=== PATIENT | male | born 1975 | race Two or more races ===

== ENCOUNTER 2024-12-24 10:28 | Emergency (ER) | payer OTHER ==
[~2024-12-24] VITALS: Ht 167.6 cm; Wt 91.1 kg
--- NOTE | 2024-12-24 10:51 | ED.PDOC ---
HPI (NEURO) HPI Comments 49 year old male presents to the ED with chief complaint of left sided facial numbness and weakness. Patient reports that he woke up this morning with left sided facial numbness and weakness, not able to close his eye all the way and cannot smile evenly. Patient relays that he has history of HLD and DM, taking Glipizide, Atorvastatin, and Metformin. Patient denies any extremity weakness, numbness, headache, chest pain, SOB, or dizziness. Chief Complaint: Left Sided Weakness Time Seen by MD: 10:47 Reviewed Notes: Nurses Notes, Medications, Allergies Information Source: Patient Mode of Arrival: Ambulatory Severity: Moderate Dizziness/Weakness Severity: Does not affect activitie Headache Severity: None Timing: Hours Duration: Since onset Prehospital treatment: None Weakness Location: Facial Numbness Location: Facial Onset: At rest Circumstances: Spontaneous Symptoms: Weakness, Numbness Before: Normal After: Normal Mentation History of: DM Modifying factors: Nothing Associated Signs and Symptoms: Weakness, Numbness Past Medical History PAST MEDICAL HISTORY: DM, High Lipids Surgical History: Denies all surgeries Family History Family History: Reviewed,noncontributory to illness Social History Smoker: Cigarettes Alcohol: Occasionally Drugs: Denies Drug Use Lives In: Home Constitutional: denies: chills, diaphoresis, fatigue, fever, malaise, sweats, weakness, others EENTM: denies: blurred vision, double vision, ear bleeding, ear discharge, ear drainage, ear pain, ear ringing, eye pain, eye redness, hearing loss, mouth pain, mouth swelling, nasal discharge, nose bleeding, nose congestion, nose pain, photophobia, tearing, throat pain, throat swelling, voice changes, others Respiratory: denies: cough, hemoptysis, orthopnea, SOB at rest, shortness of breath, SOB with excertion, stridor, wheezing, others Cardiovascular: denies: chest pain, dizzy spells, diaphoresis, Dyspnea on exertion, edema, irregular heart beat, left arm pain, lightheadedness, palpitations, PND, syncope, others Gastrointestinal: denies: abdomen distended, abdominal pain, blood streaked bowels, constipated, diarrhea, dysphagia, difficulty swallowing, hematemesis, melena, nausea, poor appetite, poor fluid intake, rectal bleeding, rectal pain, vomiting, others Genitourinary: denies: burning, dysuria, flank pain, frequency, hematuria, incontinence, penile discharge, penile sore, pain, testicle pain, testicle swelling, urgency, others Neurological: reports: others (Left sided facial numbness and weakness); denies: dizziness, fainting, headache, left sided numbness, left sided weakness, numbness, paresthesia, pre-existing deficit, right sided numbness, right sided weakness, seizure, speech problems, tingling, tremors, weakness Musculoskeletal: denies: back pain, gout, joint pain, joint swelling, muscle pain, muscle stiffness, neck pain, others Integumetry: denies: bruises, change in color, change in hair/nails, dryness, laceration, lesions, lumps, rash, wounds, others Allergic/Immunocompromised: denies: Difficulty Healing, Frequent Infections, Hives, Itching, others Hematologic/Lymphatic: denies: anemia, blood clots, easy bleeding, easy bruising, swollen glands, others Endocrine: denies: excessive hunger, excessive sweating, excessive thirst, excessive urination, flushing, intolerance to cold, intolerance to heat, unexplained weight gain, unexplained weight loss, others Psychiatric: denies: anxiety, bipolar disorder, depression, hopeless, panic disorder, schizophrenia, sleepless, suicidal, others All Other Systems: Reviewed and Negative Physical Exam General Appearance: No Apparent Distress HEENT: Normal ENT Inspection, Pharynx Normal, TMs Normal Neck: Full Range of Motion, Non-Tender, Normal, Normal Inspection Respiratory: Chest Non-Tender, Lungs Clear, No Accessory Muscle Use, No Respiratory Distress, Normal Breath Sounds Cardiovascular: No Edema, No JVD, No Murmur, No Gallop, Normal Peripheral Pulses, Regular Rate/Rhythm Breast Exam: Deferred Gastrointestinal: No Organomegaly, Non Tender, No Pulsatile Mass, Normal Bowel Sounds, Soft Genitalia: Deferred Pelvic: Deferred Rectal: Deferred Extremities: No calf tenderness, Normal capillary refill, Normal inspection, Normal range of motion, Non-tender, No pedal edema Musculoskeletal : Apperance: Normal Neurologic: Alert, Facial Droop (Left-sided facial droop), No Motor Deficits, Normal Affect, Normal Mood, No Sensory Deficits Cerebellar Function: Normal Reflexes: Normal Skin: Dry, Normal Color, Warm Lymphatic: No Adenopathy EKG EKG : Pulse Rate (adult): 65 [place]: Normal Cardiac Rhythm: NSR ST: Nonsp Was a procedure done? Was a procedure done?: No Differential Diagnosis (SZ) Seizure: Idiopathic, Syncope Headache: Other (Ordonez's palsy) X-Ray, Labs, Meds, VS Vital Signs Date Time Temp Pulse Resp B/P (MAP) Pulse Ox O2 Delivery O2 Flow Rate FiO2 12/24/24 10:51 65 12/24/24 10:41 97.2 76 18 150/78 (102) 96 Lab Test 12/24/24 10:38 Range/Units POC Glucose 218 H 70-106 mg/dl Accu-Chek was [address] scan of the head shows: There is no sign of any abnormalities The patient was being discharged with a diagnosis of Ordonez's palsy The patient was placed on a Medrol Dosepak Images Reviewed?: Images reviewed and evaluated by me Time of 1ST Reevaluation: 11:30 Reevaluation 1ST: Unchanged Patient Education/Counseling: Diagnosis, Treatment, Prognosis Family Education/Counseling: No Family Present Additional Information -Reviewed patient's previous visit(s): None - The following tests were ordered, and results were reviewed by me: Head CT - Additional information was gathered from interviewing the following independent Historian: None - I reviewed and agreed with the following test results read by other provider: Head CT - I discussed treatments and results with medical personnel and: patient Comprehensive systems review obtained and negative except for what is stated in the HPI. Departure 1 Departure Time of Disposition: 11:30 Impression: Primary Impression: Ordonez's palsy Disposition: 01 HOME / SELF CARE / HOMELESS Condition: Fair e-Prescriptions Methylprednisolone (Medrol Dosepak) 4 Mg Damien 4 MG PO UD, #21 TAB UAD Prov: ELMER SCHWAB MD 12/24/24 Discharged With: Self Critical Care Note Critical Care Time?: No Stability Stability form required: No Heart Score Heart Score: Heart Score Response (Comments) Value History N/A 0 EKG N/A 0 Age N/A 0 Risk Factors N/A 0 Troponin N/A 0 Total 0 I personally scribed for ELMER SCHWAB MD ([email or web address]) on 12/24/24 at 10:51. Electronically submitted by Mike Bautista ([email or web address]). I personally scribed for ELMER SCHWAB MD ([email or web address]) on 12/24/24 at 10:51. Electronically submitted by Mike Bautista ([email or web address]). ELMER SCHWAB MD Dec 24, 2024 10:51
--- NOTE | 2024-12-24 11:16 | DVH ---
CLINICAL INFORMATION: 49 years old, Male; left facial numbness. TECHNIQUE: Axial imaging was obtained through the brain without contrast. Coronal and sagittal reform atted images were obtained, reviewed, and stored. Images were reviewed in brain and bone windows. Al l CT scans at this medical facility are performed using dose modulation techniques as appropriate to a performed exam including the following: Automated exposure control was utilized; adjustment of the MA and/or KV according to patient size; and use of iterative reconstruction technique. CTDIvol = 64.2 1 mGy DLP = 1265.21 mGy-cm COMPARISON: None FINDINGS: There is no acute intracranial hemorrhage. No mass effect or midline shift. The ventricles and sulci are within normal limits in size for age. Basal cisterns are patent. There is a small osteo ma measuring up to 0.8 cm in greatest dimension along the outer table of the right frontal calvarium, extending laterally. The calvarium is otherwise unremarkable. Paranasal sinuses and mastoid air cell s are clear. Focal linear calcific density in the right periorbital soft tissues along the superomedi al aspect of the right globe measuring up to 5 mm in greatest dimension, may be dystrophic calcificat ion. IMPRESSION: 1. No CT evidence of acute intracranial abnormality. 2. Nonacute findings as detailed above
[2024-12-24] MEDS ORDERED: METH4PAK PO (11:29)
[2024-12-24 12:12] VITALS: BP 139/78; PULSE 76; RESP 19; TEMP 98.6; O2SAT 99
--- NOTE | 2024-12-26 08:47 | ECG ---
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
== END 2024-12-24 12:13 | disposition home or self-care (01) ==
LOC: ER 10:28
DX: G51.0 Bell's palsy (principal); E11.9 Type 2 diabetes mellitus without complications; E78.5 Hyperlipidemia, unspecified; F17.210 Nicotine dependence, cigarettes, uncomplicated; Z20.822 Contact with and (suspected) exposure to COVID-19
CPT/HCPCS: 70450; 82947; 82962; 93005